=== PATIENT | male | born 1975 | race Caucasian/White ===

== ENCOUNTER 2017-02-22 08:42 | Emergency (ER) | payer SELFPAY ==
[2017-02-22 08:55] VITALS: BP 124/73
--- NOTE | 2017-02-22 09:19 | UC ---
Throat Pain/Nasal Kurt HPI - HPI Summary HPI Summary: Pt c/o worsening nasal congestion, sinus pressure and pain X 5 days. - History of Current Complaint Chief Complaint: UCRespiratory Stated Complaint: SINUSES Time Seen by Provider: 02/22/17 09:16 Hx Obtained From: Patient Onset/Duration: Gradual Onset, Lasting Days, Worse Since - onset Severity: Moderate Associated Signs & Symptoms: Positive: Sinus Discomfort Related History: Seasonal Allergies - Epiglottits Risk Factors Epiglottis Risk Factors: Negative - Allergies/Home Medications Allergies/Adverse Reactions: Allergies Allergy/AdvReac Type Severity Reaction Status Date / Time Penicillins Allergy Unknown Unknown Verified 02/22/17 08:55 Reaction Details PMH/Surg Hx/FS Hx/Imm Hx Previously Healthy: Yes Other History Of: Negative For: HIV, Hepatitis B, Hepatitis C, Anticoagulant Therapy - Surgical History Surgical History: Yes Surgery Procedure, Year, and Place: Bilat ear tubes as a child - Family History Known Family History: Positive: Cardiac Disease - Social History Occupation: Employed Full-time Lives: With Family Alcohol Use: Occasionally Substance Use Type: None Smoking Status (MU): Never Smoked Tobacco Have You Smoked in the Last Year: No - Immunization History Vaccination Up to Date: No Review of Systems Constitutional: Fatigue Skin: Negative Eyes: Negative ENT: Sinus Congestion, Sinus Pain/Tenderness Respiratory: Negative Cardiovascular: Negative Gastrointestinal: Negative Genitourinary: Negative Motor: Negative Neurovascular: Negative Musculoskeletal: Negative Neurological: Headache Psychological: Negative Is Patient Immunocompromised?: No All Other Systems Reviewed And Are Negative: Yes Physical Exam Triage Information Reviewed: Yes Appearance: Ill-Appearing Vital Signs: Initial Vital Signs Temp 97.9 F 02/22/17 08:50 Pulse 81 02/22/17 08:50 Resp 18 02/22/17 08:50 BP 124/73 02/22/17 08:50 Pulse Ox 100 02/22/17 08:50 Vital Signs Reviewed: Yes Eye Exam: Normal ENT Exam: Other ENT: Positive: Nasal congestion, TM bulging, Sinus tenderness Dental Exam: Normal Neck exam: Normal Respiratory Exam: Normal Cardiovascular Exam: Normal Musculoskeletal Exam: Normal Neurological Exam: Normal Psychological Exam: Normal Skin Exam: Normal Throat Pain/Nasal Course/Dx - Differential Dx/Diagnosis Differential Diagnosis/HQI/PQRI: Influenza, Sinusitis, URI Provider Diagnoses: sinusitis Discharge - Discharge Plan Condition: Stable Disposition: HOME Prescriptions: Azithromycin TAB* [Zithromax TAB (Z-REG) 250 mg #6 tabs] 2 tab PO .TODAY, THEN 1 DAILY #1 reg Pseudoephedrine-Guaifenesin [Mucinex D 60-600 mg] 1 tab PO DAILY #7 tab Patient Education Materials: Sinusitis (ED) Referrals: López Justice MD [Primary Care Provider] - If Needed
== END 2017-02-22 09:33 | disposition home or self-care (01) ==
LOC: UCCORT 08:42
DX: J32.9 Chronic sinusitis, unspecified (principal); R53.83 Other fatigue; Z88.0 Allergy status to penicillin
CPT/HCPCS: 99212; G0463

== ENCOUNTER 2017-05-10 09:05 | Emergency (ER) | payer BC ==
[2017-05-10 10:17] VITALS: BP 113/67
--- NOTE | 2017-05-10 10:45 | UC ---
Throat Pain/Nasal Kurt HPI - HPI Summary HPI Summary: Sinus pain and tenderness for 2 weeks has tried mucinex, zyrtec, otc pain med without relief---does not use a nasal spray currently - History of Current Complaint Chief Complaint: UCGeneralIllness Stated Complaint: SINUS PRESSURE AND CONGESTION Time Seen by Provider: 05/10/17 10:41 Hx Obtained From: Patient Onset/Duration: Gradual Onset, Lasting Weeks - 2, Still Present Severity: Moderate Pain Intensity: 6 Pain Scale Used: 0-10 Numeric Cough: None Associated Signs & Symptoms: Positive: Sinus Discomfort - Allergies/Home Medications Allergies/Adverse Reactions: Allergies Allergy/AdvReac Type Severity Reaction Status Date / Time Penicillins Allergy Unknown Verified 05/10/17 10:13 Reaction Details Home Medications: Home Medications Cetirizine HCl/Pseudoephedrine [Zyrtec-D Tablet] 1 tab PO DAILY PRN 05/10/17 [ History Confirmed 05/10/17] guaiFENesin ER TAB [Mucinex*] 600 - 1,200 mg PO BID PRN 05/10/17 [History Confirmed 05/10/17] PMH/Surg Hx/FS Hx/Imm Hx Previously Healthy: No Cardiovascular History: Hypertension Other History Of: Negative For: HIV, Hepatitis B, Hepatitis C, Anticoagulant Therapy - Surgical History Surgical History: Yes Surgery Procedure, Year, and Place: Bilateral Ear Tubes as a child - Family History Known Family History: Positive: None, Cardiac Disease - Social History Occupation: Employed Full-time Lives: With Family Alcohol Use: Occasionally Substance Use Type: None Smoking Status (MU): Light Every Day Tobacco Smoker Type: Smokeless Tobacco Amount Used/How Often: Varies Length of Time of Smoking/Using Tobacco: Since Age 19 Have You Smoked in the Last Year: No - Immunization History Vaccination Up to Date: No Review of Systems Constitutional: Negative Skin: Negative Eyes: Negative ENT: Sinus Congestion, Sinus Pain/Tenderness Respiratory: Negative Cardiovascular: Negative Gastrointestinal: Negative Genitourinary: Negative Motor: Negative Neurovascular: Negative Musculoskeletal: Negative Neurological: Negative Psychological: Negative Is Patient Immunocompromised?: No All Other Systems Reviewed And Are Negative: Yes Physical Exam Triage Information Reviewed: Yes Appearance: Well-Appearing, No Pain Distress, Well-Nourished Vital Signs: Initial Vital Signs Temp 98.2 F 05/10/17 10:12 Pulse 82 05/10/17 10:12 Resp 16 02/04/18 10:12 BP 113/67 05/10/17 10:12 Pulse Ox 99 05/10/17 10:12 Vital Signs Reviewed: Yes Eye Exam: Normal Eyes: Positive: Conjunctiva Clear ENT Exam: Normal ENT: Positive: Normal ENT inspection, Hearing grossly normal, Pharynx normal, Nasal congestion, TMs normal, Sinus tenderness, Uvula midline. Negative: Trismus, Muffled voice, Hoarse voice, Dental tenderness Dental Exam: Normal Neck exam: Normal Neck: Positive: Supple, Nontender, No Lymphadenopathy Respiratory Exam: Normal Respiratory: Positive: Chest non-tender, Lungs clear, Normal breath sounds, No respiratory distress, No accessory muscle use Cardiovascular Exam: Normal Cardiovascular: Positive: RRR, No Murmur, Pulses Normal, Brisk Capillary Refill Musculoskeletal Exam: Normal Musculoskeletal: Positive: Strength Intact, ROM Intact, No Edema Neurological Exam: Normal Neurological: Positive: Alert, Muscle Tone Normal Psychological Exam: Normal Skin Exam: Normal Throat Pain/Nasal Course/Dx - Course Assessment/Plan: Zithromax, flonase, ok to continue mucinex and nasal decongestant follow with pcp prn - Differential Dx/Diagnosis Provider Diagnoses: Acute Rhinosinusitis Discharge - Discharge Plan Condition: Stable Disposition: HOME Prescriptions: Azithromycin TAB* [Zithromax TAB (Z-REG) 250 mg #6 tabs] 2 tab PO .TODAY, THEN 1 DAILY #1 reg Fluticasone NASAL SPRAY 50MCG* [Flonase NASAL SPRAY 50MCG*] 2 spray BOTH NARES DAILY #1 btl Patient Education Materials: Sinusitis (ED), How to Use Nasal [place] (ED) Referrals: López Justice MD [Medical Doctor] - If Needed
== END 2017-05-10 10:52 | disposition home or self-care (01) ==
LOC: UCCORT 09:05
DX: J01.90 Acute sinusitis, unspecified (principal); Z72.89 Other problems related to lifestyle; Z72.0 Tobacco use
CPT/HCPCS: 99212; G0463

== ENCOUNTER 2018-05-31 13:45 | Emergency (ER) | payer BC, OTHER ==
[2018-05-31 14:14] VITALS: BP 138/93
--- NOTE | 2018-05-31 14:52 | UC ---
Minor Trauma HPI - HPI Summary HPI Summary: Pt was at work, wearing steel toed boots, when a manhole cover flipped over and fell onto his left foot causing a bruise. - History of Current Complaint Chief Complaint: UCLowerExtremity Stated Complaint: LT FOOT INJURY-WC Time Seen by Provider: 05/31/18 14:22 Hx Obtained From: Patient Onset/Duration: Sudden Onset Onset Of Pain: Immediate Severity Initially: Mild Severity Currently: Mild Pain Intensity: 5 Mechanism Of Injury: Other - A manhole cover flipped over and hit the dorsum of patient's left foot. He was wearing steel toed boots at the time. Happened while at work. Aggravating Factor(s): Movement Alleviating Factor(s): Nothing Associated Signs And Symptoms: Positive: Ecchymosis, Swelling - Minimal swelling present - Allergies/Home Medications Allergies/Adverse Reactions: Allergies Allergy/AdvReac Type Severity Reaction Status Date / Time Penicillins Allergy Unknown Verified 05/31/18 14:11 Reaction Details PMH/Surg Hx/FS Hx/Imm Hx Previously Healthy: Yes Other History Of: Negative For: HIV, Hepatitis B, Hepatitis C, Anticoagulant Therapy - Surgical History Surgical History: Yes Surgery Procedure, Year, and Place: Bilateral Ear Tubes as a child - Family History Known Family History: Positive: None, Cardiac Disease - Social History Occupation: Employed Full-time Alcohol Use: Occasionally Substance Use Type: None Smoking Status (MU): Light Every Day Tobacco Smoker Type: Smokeless Tobacco Amount Used/How Often: Varies Length of Time of Smoking/Using Tobacco: Since Age 19 Have You Smoked in the Last Year: No - Immunization History Vaccination Up to Date: No Review of Systems All Other Systems Reviewed And Are Negative: Yes Motor: Positive: Negative Neurovascular: Positive: Negative Musculoskeletal: Positive: Other: - Mild bruising to dorsum left foot, minimal swelling, no deformity. Good periph pulses, neurosensation cap refill. Neurological: Positive: Negative Psychological: Positive: Negative Is Patient Immunocompromised?: No Physical Exam Triage Information Reviewed: Yes Appearance: Well-Appearing, No Pain Distress, Well-Nourished Vital Signs: Initial Vital Signs Temp 97.6 F 05/31/18 14:10 Pulse 84 05/31/18 14:10 Resp 14 05/31/18 14:10 BP 138/93 05/31/18 14:10 Pulse Ox 99 05/31/18 14:10 Vital Signs Reviewed: Yes Musculoskeletal Exam: Normal Neurological Exam: Normal - Good periph pulses, neurosensation, cap refill, Full ROM Psychological Exam: Normal Skin: Positive: Other - Mild bruising and minimal swelling to dorsum left foot. No deformity noted. Minor Trauma Course/Dx - Differential Dx/Diagnosis Differential Diagnosis/HQI/PQRI: Contusion(s) Provider Diagnosis: Contusion of left foot Discharge - Sign-Out/Discharge Documenting (check all that apply): Patient Departure All imaging exams completed and their final reports reviewed: Yes - Discharge Plan Condition: Good Disposition: HOME Patient Education Materials: Foot Contusion (ED) Referrals: López Justice MD [Primary Care Provider] - Additional Instructions: Apply ice and elevate intermittently over the next few days. Tylenol/Motrin as directed for pain as needed. Follow up with the orthopedist if you continue to have pain or worsening pain. - Billing Disposition and Condition Condition: GOOD Disposition: Home - Attestation Statements Provider Attestation: Per institutional requirements, I have reviewed the chart, however, I was not consulted specifically or made aware of this patient by the midlevel provider. I did not personally evaluate, interact with , or disposition this patient.
== END 2018-05-31 14:57 | disposition home or self-care (01) ==
LOC: UCCORT 13:45
DX: S90.32XA Contusion of left foot, initial encounter (principal); F17.290 Nicotine dependence, other tobacco product, uncomplicated; Z88.0 Allergy status to penicillin; W20.8XXA Other cause of strike by thrown, projected or falling object, initial encounter; Y92.9 Unspecified place or not applicable
CPT/HCPCS: 99211; G0463

== ENCOUNTER 2018-11-01 15:31 | Emergency (ER) | payer BC, OTHER ==
[2018-11-01 15:47] VITALS: BP 152/93
--- NOTE | 2018-11-01 15:56 | ED ---
Throat Pain/Nasal Congestion - HPI Summary HPI Summary: 42 yr old with sinus pain, right more than left, congestion and nasal drainage. He started with a cold one week ago, and now had these symptoms. No fever or chills. No other complaints. - History of Current Complaint Chief Complaint: UCGeneralIllness Time Seen by Provider: 11/01/18 15:48 - Allergies/Home Medications Allergies/Adverse Reactions: Allergies Allergy/AdvReac Type Severity Reaction Status Date / Time Penicillins Allergy Unknown Verified 11/01/18 15:43 Reaction Details PMH/Surg Hx/FS Hx/Imm Hx Endocrine/Hematology History: Denies: Hx Anticoagulant Therapy, Hx Diabetes, Hx Thyroid Disease Cardiovascular History: Reports: Hx Hypertension Denies: Hx Congestive Heart Failure, Hx Deep Vein Thrombosis, Hx Myocardial Infarction, Hx Pacemaker/ICD Respiratory History: Reports: Hx Asthma Denies: Hx Lung Cancer GI History: Denies: Hx Gall Bladder Disease, Hx Gastrointestinal Bleed, Hx Ulcer, Hx Urosepsis History: Denies: Hx Kidney Stones, Hx Renal Disease Neurological History: Denies: Hx Dementia, Hx Migraine, Hx Seizures, Hx Transient Ischemic Attacks (TIA) Psychiatric History: Denies: Hx Anxiety, Hx Depression, Hx Schizophrenia, Hx Bipolar Disorder - Surgical History Surgery Procedure, Year, and Place: Bilateral Ear Tubes as a child Infectious Disease History: No Infectious Disease History: Denies: Hx Clostridium Difficile, Hx Hepatitis, Hx Human Immunodeficiency Virus (HIV), Hx of Known/Suspected MRSA, Hx Shingles, Hx Tuberculosis, Hx Known/ Suspected VRE, Hx Known/Suspected VRSA, History Other Infectious Disease, Traveled Outside the [place] in Last 30 Days - Family History Known Family History: Positive: None, Cardiac Disease - Social History Occupation: Employed Full-time Alcohol Use: Occasionally Substance Use Type: Reports: None Smoking Status (MU): Light Every Day Tobacco Smoker Type: Smokeless Tobacco Amount Used/How Often: 2 cans/week Length of Time of Smoking/Using Tobacco: Since Age 19 Have You Smoked in the Last Year: No Review of Systems Constitutional: Negative Positive: Ear Ache, Nasal Discharge, Other - sinus pain Positive: Cough All Other Systems Reviewed And Are Negative: Yes Physical Exam Triage Information Reviewed: Yes Vital Signs On Initial Exam: Initial Vitals Temp Pulse Resp BP Pulse Ox 97.7 F 79 16 152/93 99 11/01/18 15:43 11/01/18 15:43 11/01/18 15:43 11/01/18 15:43 11/01/18 15:43 Vital Signs Reviewed: Yes Appearance: Positive: Well-Appearing, No Pain Distress Skin: Positive: Warm, Skin Color Reflects Adequate Perfusion Head/Face: Positive: Normal Head/Face Inspection Eyes: Positive: EOMI, DHRUV ENT: Positive: Pharynx normal, Nasal congestion, Nasal drainage, TM red - right , Sinus tenderness Neck: Positive: Nontender Respiratory/Lung Sounds: Positive: Clear to Auscultation, Breath Sounds Present Cardiovascular: Positive: RRR. Negative: Murmur Abdomen Description: Negative: Distended Musculoskeletal: Positive: Strength/ROM Intact Neurological: Positive: Sensory/Motor Intact, Alert, Oriented to Person Place, Time, CN Intact II-III Psychiatric: Positive: Normal Diagnostics - Vital Signs Vital Signs Temp Pulse Resp BP Pulse Ox 11/01/18 15:43 97.7 F 79 16 152/93 99 - Laboratory Lab Statement: Any lab studies that have been ordered have been reviewed, and results considered in the medical decision making process. EENT Course/Dx - Course Course Of Treatment: 42 yr old with sinusitis. RX with biaxin. fu with pmd for bp. - Diagnoses Provider Diagnoses: Sinusitis, Right otitis media, Hypertension Discharge - Sign-Out/Discharge Documenting (check all that apply): Patient Departure All imaging exams completed and their final reports reviewed: No Studies - Discharge Plan Condition: Good Disposition: HOME Prescriptions: Clarithromycin TAB* [Biaxin 500 MG TAB*] 500 mg PO BID #20 tab Patient Education Materials: Sinusitis (ED), Hypertension (ED) Referrals: López Justice MD [Primary Care Provider] - 3 Days - Billing Disposition and Condition Condition: GOOD Disposition: Home
== END 2018-11-01 15:58 | disposition home or self-care (01) ==
LOC: UCCORT 15:31
DX: J32.9 Chronic sinusitis, unspecified (principal); H66.91 Otitis media, unspecified, right ear; I10 Essential (primary) hypertension; Z88.0 Allergy status to penicillin; F17.290 Nicotine dependence, other tobacco product, uncomplicated
CPT/HCPCS: 99212; G0463

== ENCOUNTER 2019-03-31 08:02 | Emergency (ER) | payer BC ==
[2019-03-31 08:17] VITALS: BP 154/103
--- NOTE | 2019-03-31 08:25 | UC ---
Throat Pain/Nasal Kurt HPI - HPI Summary HPI Summary: Pt presents with c/o nasal congestion , sinus pressure and pain X 4 days. Pt states that he gets "several sinus infectiosn per year" He reprots that he has been taking OTC medications, mucinex and zyrtec-d with little to no improvement in symptoms. - History of Current Complaint Chief Complaint: UCGeneralIllness Stated Complaint: SINUS COMPLAINT Time Seen by Provider: 03/31/19 08:19 Hx Obtained From: Patient Onset/Duration: Gradual Onset, Lasting Days, Still Present Severity: Moderate Pain Intensity: 0 Cough: Nonproductive Associated Signs & Symptoms: Positive: Wheezing, Sinus Discomfort Related History: Seasonal Allergies - Epiglottits Risk Factors Epiglottis Risk Factors: Negative - Allergies/Home Medications Allergies/Adverse Reactions: Allergies Allergy/AdvReac Type Severity Reaction Status Date / Time Penicillins Allergy Unknown Verified 03/31/19 08:12 Reaction Details Home Medications: Home Medications guaiFENesin [Mucinex] 1 dose PO ONCE 03/31/19 [History Confirmed 03/31/19] PMH/Surg Hx/FS Hx/Imm Hx Previously Healthy: Yes Other History Of: Negative For: HIV, Hepatitis B, Hepatitis C, Anticoagulant Therapy - Surgical History Surgical History: Yes Surgery Procedure, Year, and Place: Bilateral Ear Tubes as a child - Family History Known Family History: Positive: None, Cardiac Disease - Social History Occupation: Employed Full-time Lives: With Family Alcohol Use: Occasionally Substance Use Type: None Smoking Status (MU): Light Every Day Tobacco Smoker Type: Smokeless Tobacco Amount Used/How Often: 2 cans/week Length of Time of Smoking/Using Tobacco: Since Age 19 Have You Smoked in the Last Year: No - Immunization History Vaccination Up to Date: No Review of Systems All Other Systems Reviewed And Are Negative: Yes Constitutional: Positive: Fatigue Skin: Positive: Negative Eyes: Positive: Negative ENT: Positive: Sinus Congestion, Sinus Pain/Tenderness Respiratory: Positive: Cough Cardiovascular: Positive: Negative Gastrointestinal: Positive: Negative Genitourinary: Positive: Negative Motor: Positive: Negative Neurovascular: Positive: Negative Musculoskeletal: Positive: Negative Neurological: Positive: Negative Psychological: Positive: Negative Is Patient Immunocompromised?: No Physical Exam Triage Information Reviewed: Yes Appearance: Ill-Appearing Vital Signs: Initial Vital Signs Temp 98 F 03/31/19 08:12 Pulse 88 03/31/19 08:12 Resp 16 03/31/19 08:12 BP 154/103 03/31/19 08:12 Pulse Ox 97 03/31/19 08:12 Vital Signs Reviewed: Yes Eye Exam: Normal ENT: Positive: Nasal congestion, Sinus tenderness Dental Exam: Normal Neck exam: Normal Respiratory Exam: Normal Cardiovascular Exam: Normal Musculoskeletal Exam: Normal Neurological Exam: Normal Psychological Exam: Normal Skin Exam: Normal Throat Pain/Nasal Course/Dx - Course Course Of Treatment: BP reading at todays visit discussed with pt. Pt stated that he would f/u with PCP as soon as possible. - Differential Dx/Diagnosis Differential Diagnosis/HQI/PQRI: Sinusitis, URI Provider Diagnosis: Sinusitis Discharge ED - Sign-Out/Discharge Documenting (check all that apply): Patient Departure All imaging exams completed and their final reports reviewed: No Studies - Discharge Plan Condition: Stable Disposition: HOME Prescriptions: Azithromycin TAB* [Zithromax TAB (Z-REG) 250 mg #6 tabs] 2 tab PO .TODAY, THEN 1 DAILY #1 reg Patient Education Materials: Sinusitis (ED) Referrals: López Justice MD [Primary Care Provider] - If Needed - Billing Disposition and Condition Condition: STABLE Disposition: Home - Attestation Statements Provider Attestation: Per institutional requirements, I have reviewed the chart, however, I was not consulted specifically or made aware of this patient by the midlevel provider. I did not personally evaluate, interact with , or disposition this patient.
== END 2019-03-31 08:35 | disposition home or self-care (01) ==
LOC: UCCORT 08:02
DX: J32.9 Chronic sinusitis, unspecified (principal); F17.290 Nicotine dependence, other tobacco product, uncomplicated; R53.83 Other fatigue; Z88.0 Allergy status to penicillin
CPT/HCPCS: 99212; G0463